=== PATIENT | male | born 1945 | race African-American/Black ===

== ENCOUNTER 2016-11-17 12:04 | Emergency (ER) | payer OTHER ==
[~2016-11-17] VITALS: Ht 180.3 cm; Wt 74.8 kg
[~2016-11-17 12:04] MED LIST: ANTIVERT25 MG PO; COLACE100 MG PO; ENABLEX15 MG PO; LIPITOR10 MG PO; LUPRON DEPOT11.25 MG IM; NASACORT10.8 ML NS; ONDANSETRON HCL4 M2 PO; PROBIOTIC BLEN1 EACH PO; SEROQUEL 50 MG50 MG PO; VIAGRA100 MG PO; VITAMIN B-12500 MCG PO; VITAMIN D2000 UNIT PO; ZEGERID 40 MG1 EACH PO; ZOLOFT50 MG PO
[2016-11-17 13:37] LABS: ABSOLUTE NEUTROPHILS 4.8 thou/uL (1.4-8.2); BASOPHILS 0.5 % (0.0-2.0); EOSINOPHILS 0.7 % (0.0-3.0); HEMOGLOBIN 13.9 gm/dL (14.0-18.0); MCH 31.7 pg (26.0-34.0); MCV 93.3 fL (80.0-100.0); MONOCYTES 6.6 % (1.0-8.0); PLATELET COUNT 275 thou/uL (150-400); POLYS 75.2 % (36.0-66.0); RBC 4.39 mil/uL (4.50-6.00); RDW 12.9 % (10.5-14.5); WBC 6.3 thou/uL (4.0-11.0)
[2016-11-17 13:40] LABS: MANUAL DIFF NO
[2016-11-17] MEDS ORDERED: TRAMADOL 50 MG50 MG PO (14:31)
[2016-11-17 14:34] LABS: CALCIUM 9.4 mg/dL (8.5-10.1); CREATININE 0.9 mg/dL (0.7-1.3); POTASSIUM 4.3 mmol/L (3.5-5.1)
[2016-11-17 15:21] VITALS: BP 139/67
== END 2016-11-17 15:22 | disposition home or self-care (01) ==
LOC: ER 12:04
PROVIDERS: Emergency Medicine
DX: Q75.9 Congenital malformation of skull and face bones, unspecified (principal); K21.9 Gastro-esophageal reflux disease without esophagitis; Z85.46 Personal history of malignant neoplasm of prostate; Z90.89 Acquired absence of other organs; Z88.6 Allergy status to analgesic agent